=== PATIENT | male | born 1940 | race Caucasian/White ===

== ENCOUNTER 2022-07-01 11:35 | Outpatient (CLI) | payer MEDICARE, SELFPAY ==
[2022-07-01 17:48] LABS: Hematocrit 41.9 % (42.0-52.0); Hemoglobin 13.6 g/dL (11.7-16.6); Mean Corpuscular HGB Conc 32.5 g/dL (30.0-36.0); Mean Corpuscular Hemoglobin 32.1 pg (28.0-34.0); Mean Corpuscular Volume 98.8 fl (80-94); Mean Platelet Volume 12.7 fL (7.4-10.4); Platelet Count 194 10^3/cmm (130-400); Red Blood Count 4.24 10^6/uL (4.1-5.3); Red Cell Distribution Width 15.9 % (12.1-15.1); White Blood Count 5.9 10^3/uL (4.0-10.0)
[2022-07-01 17:52] LABS: Bilirubin Urine Neg (Negative); Blood Urine Neg (Negative); Glucose Urine UA Norm (Normal); Ketones Urine Negative (Negative); Leukocyte Esterase Urine Negative (Negative); Nitrate Urine Negative (Negative); Protein Urine Neg (Negative); Specific Gravity, Urine 1.015 (1.005-1.030); Urine Appearance Clear (CLEAR); Urine Color Yellow (Yellow); Urobilinogen Urine 1 mg/dL (Negative); pH Urine 6.5 (5-7)
[2022-07-01 17:53] LABS: Add Urine Culture? No; Squamous Epithelial Cell Urine 0-4 /hpf (0-5); WBC Urine 0-4 /hpf (0-5)
[2022-07-01 18:17] LABS: Alanine Aminotransferase 25 U/L (0-41); Albumin Level 3.6 g/dL (3.5-5.2); Alkaline Phosphatase 64 U/L (40-130); Anion Gap 15.2 (5-19); Aspartate Amino Transferase 20 U/L (0-40); Blood Urea Nitrogen 21 mg/dL (8-23); Carbon Dioxide 28 mmol/L (22-29); Chloride 97 mmol/L (98-107); Chol HDL Ratio 3.39 mg/dL (1.0-5.00); Cholesterol 200 mg/dL (0-200); Globulin 3.3 g/dL (1.3-4.6); Glucose 82 mg/dL (65-115); HDL Cholesterol 59 mg/dL (60-100); LDL Cholesterol Calculated 109 mg/dL (50-129); LDL HDL Ratio 1.85 RATIO (0.00-3.22); Osmolality Calculated 282 mOsm/kg (285-295); Potassium 5.2 mmol/L (3.5-5.1); Sodium 135 mmol/L (136-145); Thyroid Stimulating Hormone 1.51 uIU/mL (0.27-4.20); Total Bilirubin 0.3 mg/dL (0.15-1.2); Total Protein 6.9 g/dL (6.6-8.7); Triglycerides 162 mg/dL (0-150)
[2022-07-01 18:30] LABS: Absolute Neutrophil 4.4 10^3/cmm (1.4-6.5); Absolute Segmented Neutrophil 4.4 10/cmm (1.6-7.1); Eosinophils 1 %; Lymphocytes 11 %; Lymphocytes Absolute 1.1 10^3/cmm (1.2-3.4); Monocytes Absolute 0.4 10^3/cmm (0.1-0.6); Platelet Estimate Normal (Normal); Segmented Neutrophils 74 %; Total Cells Counted 100 (0-100)
[2022-07-01 18:37] LABS: Prostate Specific Antigen 0.513 ng/mL (0-4)
== END 2022-07-01 11:36 | disposition home or self-care (01) ==
LOC: LAB 07-08 09:36
PROVIDERS: Visit Provider Student in an Organized Health Care Education/Training Program
DX: Z79.899 Other long term (current) drug therapy (principal)
CPT/HCPCS: 80053; 80061; 81001; 84153; 84443; 85007; 85027